=== PATIENT | male | born 1940 | race Two or more races ===

== ENCOUNTER 2024-07-02 19:03 | Emergency (ER) | payer OTHER, SELFPAY ==
[2024-07-02 19:22] VITALS: BP 147/74; PULSE 75; RESP 18; TEMP 36.9; O2SAT 98; BMI 34.5
--- NOTE | 2024-07-02 19:33 | XR_ITS ---
Examination: Ultrasound soft tissue right base Technique: Multiple high-resolution grayscale sonographic images soft tissue right base Exam date and time: July 02, 20242032 hrs. Indications: Right cheek swelling and pain today Findings: Small cystic areas at the area concern 10 x 8 x 8 mm, 5 x 3 x 4 mm Impression: Small cystic areas in the soft tissue right cheek at the area of concern, differential would include early small abscesses, clinical correlation advised Consider CT soft tissue neck post intravenous contrast follow-up
--- NOTE | 2024-07-02 19:34 | PD.EDRME ---
Rapid Medical Screening Exam RME Arrival date/time: 07/02/24 19:03 84 year old male present to Ed for c/o of jaw/neck swelling today I have greeted and performed a focused initial assessment of this patient. A comprehensive ED assessment and evaluation of the patient, analysis of all test results, and completion of the medical decision making process will be conducted by additional ED providers. Chief Complaint: General Adult/Misc Complain Time Seen by Provider: 07/02/24 19:10 Vital signs: Vital Signs Temperature 98.5 F 07/02/24 19:22 Pulse Rate 75 07/02/24 19:22 Respiratory Rate 18 07/02/24 19:22 Blood Pressure 147/74 H 07/02/24 19:22 Pulse Oximetry (%) 98 07/02/24 19:22 Oxygen Delivery Method Room Air 07/02/24 19:22
--- NOTE | 2024-07-02 23:02 | XR_ITS ---
Examination: CT soft tissue neck, with intravenous contrast. 2-D coronal reconstructions. 2-D sagittal reconstructions. Date and time of exam :July 03, 2024 at 1250 hrs. Indications: Right cheek swelling and pain today. CTDI: vol (mGy):10.8 DLP: (mGycm):297 Technique: 1.25 mm axial sections of the neck of the obtained. Coronal and sagittal reconstructions have been obtained. Intravenous contrast administered 50 cc Isovue-370 Low dose protocols, automated exposure control, adjustment MA KV according to patient size Findings: Symmetrical nasopharynx oropharynx No pathologic carotid triangle or submental lymphadenopathy The larynx appears normal Symmetrical thyroid lobes Normal epiglottis Bilateral maxillary incisor dental caries Left incisor premolar mandibular dental caries. Impression: Dental caries maxilla and mandible as above No soft tissue neck abscess
--- NOTE | 2024-07-02 23:10 | EDNOTE_ITS ---
ED General RME/HPI General Chief complaint: General Adult/Misc Complain Stated complaint: RIGHT CHEEK SWELLING Time Seen by Provider: 07/02/24 19:10 Arrival date/time: 07/02/24 19:03 RME / HPI RME / HPI narrative: 07/02/24 19:03 84 year old male present to Ed for c/o of jaw/neck swelling today I have greeted and performed a focused initial assessment of this patient. A comprehensive ED assessment and evaluation of the patient, analysis of all test results, and completion of the medical decision making process will be conducted by additional ED providers. ----- Dr. Costa?s Main ED Evaluation: 84yo male presents to the ED for a chief complaint of right cheek and jaw pain x 1 day. Patient states his right cheek states it feels harder since yesterday and his pain has persisted, so he came in for evaluation. He denies any testicular pain, testicular swelling, fever, chills or any other associated symptoms. No known allergies. Related Data Home Medications ?Medication ?Instructions ?Recorded ?Confirmed Losartan Potassium * (COZAAR *) 100 mg PO QDAY #0 tabs 01/14/17 03/11/23 indomethacin 25 mg capsule 25 mg PO QID #0 caps 01/14/17 03/17/18 pravastatin 20 mg tablet 20 mg PO HS #0 tabs 01/14/17 03/17/18 (Pravachol) tamsulosin 0.4 mg capsule (Flomax) 0.4 mg PO QDAY ##0 04/25/17 03/17/18 allopurinol 300 mg tablet 300 mg PO QDAY 03/11/23 03/11/23 amlodipine 5 mg tablet 5 mg PO QDAY 03/11/23 03/11/23 clopidogrel 75 mg tablet (Plavix) 75 mg PO QDAY 03/11/23 03/11/23 donepezil 5 mg tablet 5 mg PO QDAY 03/11/23 03/11/23 doxazosin 4 mg tablet 4 mg PO QDAY 03/11/23 03/11/23 dutasteride 0.5 mg capsule 0.5 mg PO QDAY 03/11/23 03/11/23 memantine 5 mg tablet 5 mg PO BID 03/11/23 03/11/23 rosuvastatin 20 mg tablet 20 mg PO QDAY 03/11/23 03/11/23 Allergies Allergy/AdvReac Type Severity Reaction Status Date / Time No Known Allergies Allergy Unverified 03/17/18 09:58 Review of Systems Review of Systems Systems Reviewed: All systems reviewed, normal except as documented Narrative Review of Systems: Gen: No fever, no chills, no weight loss EYES: No discharge, no visual changes, no pain HEENT: No ear pain, no congestion, no sore throat, + right cheek/jaw pain PULM: No shortness of breath, no cough, no congestion CV: No chest pain, no dyspnea on exertion, no palpitations GI: No nausea, no vomiting, no diarrhea, no pain, no constipation : No frequency, no urgency, no dysuria Musc/skel: No joint pain, no back pain Skin: No rash Psyc: No hallucinations, no depression Heme/Lymph: No easy bleeding or bruising tendencies Neuro: No weakness, no headache Past Medical History Past Medical History NEUROLOGIC: Positive Neurological Disorders and Transient Ischemic Attacks (TIA); Negative Seizures CARDIAC: Positive Cardiac Disorders, Hypercholesterolemia and Hypertension; Negative Congestive Heart Failure RESPIRATORY: Negative Chronic Obstructive Pulmonary Disease (COPD) GASTROINTESTINAL: Negative Gastrointestinal Disorders GENITOURINARY: Positive Genitourinary Disorders and Benign Prostatic Hyperplasia; Negative Renal Disease MUSCULOSKELETAL: Positive Musculoskeletal Disorders and Gout ENT: Positive Cataracts (OS) ENDOCRINE: Negative Endocrine Disorders, Diabetes Mellitus Type 1 or Diabetes Mellitus Type 2 HEMATOLOGIC: Negative Blood Disorders OTHER HISTORY: Negative Autoimmune Disease, Falls, Blood Transfusions, Blood Transfusion Reaction or Anesthesia Reactions Social History SMOKING STATUS: Never smoker SECOND HAND EXPOSURE: No ED Exam Narrative Physical exam: GENERAL APPEARANCE: alert and oriented x 4, well-developed, well-nourished, no acute distress HEENT: Normocephalic, atraumatic; pupils equal, round, reactive to light; EOMI; mucous membranes pink, moist; oropharynx clear; enlarged, firm, and tender right carotid gland; no perulent drainage on palpation of the carotid gland NECK: Supple LUNGS: CTABL; no wheezes, no rales, no rhonchi HEART: Regular rate, regular rhythm; normal S1, S2; no murmurs ABDOMEN: non distended; normal BS; soft, no tenderness, no guarding, no rebound; no masses, no organomegaly, no hernia BACK: no CVA tenderness EXTREMITIES: atraumatic; no edema NEUROLOGIC: awake; alert and oriented x4; cranial nerves II-XII grossly intact; no focal sensory or motor deficits PSYCHIATRIC: appropriate mood and affect SKIN: warm, dry, normal color; no rashes Course Course Course Narrative: 0255: Requested the personnel monitor to call teleradiology to comment on the right carotid gland. Awaiting re-read of the CT scan at this time. 0335: Discussed results with the patient and family at bedside. Decision to discharge the patient. The patient and all family were given an opportunity to ask questions and understood their discharge instructions. Discharge instructions specifically included follow up provider and time frame, current and/or new medications and possible side effects, indications for sooner follow up or return to the emergency department, and the expected course of current diagnosis. Patient and family verbalized understanding. Quality Measures none Orders Category Date Time Status CT Screening NOW Care 07/02/24 23:[address] soft tissue neck w con Stat Exams 07/02/24 23:02 Taken US soft tissue head neck Stat Exams 07/02/24 19:33 Completed CBC Stat Lab 07/02/24 23:30 Completed CMP [Comprehensive Metabolic Panel] Stat Lab 07/02/24 23:30 Completed Lactic Acid [Lactate (Lactic Acid)] Stat Lab 07/02/24 23:30 Completed HYDROcodone*/APAP 5/325 [[place] 5/325] Med 07/02/24 23:03 Discontinued 1 tab PO X1 ONE Vital Signs Vital signs: Vital Signs Temperature 98.5 F 07/02/24 19:22 Pulse Rate 75 07/02/24 19:22 Respiratory Rate 18 07/02/24 19:22 Blood Pressure 147/74 H 07/02/24 19:22 Pulse Oximetry (%) 98 07/02/24 19:22 Oxygen Delivery Method Room Air 07/02/24 19:22 Pulse ox is 98% on room air, which is normal according to my interpretation. [facility] [place] Patient data External records reviewed:: [facility] previous records (Per chart review, patient was admitted here on 03/09/23 for acute dehydration.) Clinical information provided by:: patient Social determinants that could affect healthcare access:: none Patient has the following chronic illnesses:: TIA, HTN, HLD How is presenting disease/condition affected by chronic disease/condition?: u neffected by Evaluation data The following diagnostics were reviewed and interpreted by me:: lab results and radiology exam(s) Lab and/or radiology exams considered but not ordered:: none Interpretation Summary: CBC is normal, CMP is normal, Lactate is normal, according to my interpretation. ----- [facility] Report Signed Patient: ROSE MARY SALMERON. Record#: [id number] Birthdate: 1940 Age/Sex: 84 / M Location: [facility] Attending Dr: Ordering Physician: Vladimir Macedo PA-C Date of Service: 07/02/24 Procedure(s): US soft tissue head neck Accession Number(s): [id number] cc: Ja Figueroa MD; Dionte Vasquez MD; Vladimir Macedo PA-C~ Examination: Ultrasound soft tissue right base Technique: Multiple high-resolution grayscale sonographic images soft tissue right base Exam date and time: July 02, 2024 2033 hrs. Indications: Right cheek swelling and pain today Findings: Small cystic areas at the area concern 10 x 8 x 8 mm, 5 x 3 x 4 mm Impression: Small cystic areas in the soft tissue right cheek at the area of concern, differential would include early small abscesses, clinical correlation advised Consider CT soft tissue neck post intravenous contrast follow-up Dictated By: Dionte Vasquez MD Signed By: <Electronically signed by Dionte Vasquez MD in OV> 07/02/24 2200 ----- [facility] Preliminary Report Draft Patient: ROSE MARY SALMERON. Record#: [id number] Birthdate: 1940 Age/Sex: 84 / M Location: [facility] Attending Dr: Ordering Physician: Date of Service: Procedure(s): Accession Number(s): cc: ~ ORIGINAL REPORT CT scan of the neck with intravenous contrast (axial sections with sagittal and coronal reformats) July 03, 2024 0050 hours Clinical History: Right jaw swelling Comparison: No prior study is available for comparison. Findings: The nasopharynx, oropharynx, hypopharynx, supraglottic and infraglottic larynx, vocal cords and upper trachea are unremarkable. The epiglottis and aryepiglottic folds appear unremarkable. The vessels of the neck are well opacified. No filling defect is seen. No enhancing lesion or fluid collection is identified. The bones are osteopenic. Apical lucencies in the right upper and left lower incisors. The superficial softtissues of the neck are unremarkable. Impression: Apical lucencies in the right upper and left lower incisors, suggestive of periapical cysts or granulomas. Recommend clinical correlation. No enhancing lesion or fluid collection. Report Electronically Signed By: Pedro Reich 07/03/2024 2:35:40 AM [EST] ADDENDUM REPORT On further review, there is a 1 cm right parotid gland nodule. Suggest follow up clinically or with ultrasound. No inflammation is seen. Report Electronically Signed By: Pedro Reich 07/03/2024 3:36:50 AM [EST Medications Medications considered but not ordered:: none Medication administrations:: Medication Administration History Discontinued Medications Hydrocodone Bitart/Acetaminophen (Hydrocodone/Apap 5/325 Tablet) 1 tab PO X1 ONE Stop: 07/02/24 23:04 Last Admin: 07/02/24 23:20 Dose: 1 tab Documented By: AMY see above Consultations Consultation(s) initiated? (list below): No Diagnosis Differential Diagnosis ED Complaint MDM: parotitis, malignance, gland obstruction Most likely diagnosis given after review of the tests above:: see below Admission Indicated Admission indicated?: not indicated Explain why admission is indicated or not indicated:: Admission criteria not met. Admission Request Was there a request for admission?: No Disposition Plan Disposition Plan: Discharge Discharge Attestation Discharge Attestation: The patient and all family members were given an opportunity to ask questions and understood the discharge instructions. Discharge instructions specifically effects, indications for sooner follow up or return to the emergency department, and the expected course of current diagnosis. Patient condition: Stable Medical Decision Making MDM Narrative MDM Narrative: Scribe Attestation: 07/02/24 - Nat Cunningham am scribing for and in the presence of Dr. Costa. Differential Diagnosis Differential Diagnosis: parotitis, malignance, gland obstruction Lab Data 07/02/24 23:30 07/02/24 23:30 Labs: Lab Results 07/02/24 Range/Units 23:30 WBC 10.4 (3.8-10.6) Thou/mm3 RBC 4.20 L (4.50-5.90) Miln/mm3 Hgb 12.6 L (13.5-16.0) g/dL Hct 37.8 L (41.0-53.0) % MCV 90 (80-100) fL MCH 30.0 (25.0-35.0) pg MCHC 33.3 (31.0-37.0) g/dl RDW Std Deviation 44.8 H (35.1-43.9) fL Plt Count 252 (140-440) Thou/mm3 Neut % (Auto) 68 (37-80) % Lymph % (Auto) 24 (10-50) % O'Brien % (Auto) 7 (0-12) % Eos % (Auto) 1 (0-10) % Baso % (Auto) 0 (0-2.5) % Neut # (Auto) 7.1 (1.8-7.7) Thou/mm3 Lymph # (Auto) 2.5 (1.0-4.8) Thou/mm3 O'Brien # (Auto) 0.7 (0.0-0.8) Thou/mm3 Eos # (Auto) 0.1 (0.0-0.5) Thou/mm3 Baso # (Auto) 0.0 (0.0-0.2) Thou/mm3 Immature Gran # (Auto) 0.10 H (0.00-0.00) Thou/mm3 Absolute Nucleated RBC 0.00 (0.00-0.00) Thou/mm3 Immature Gran % 1 H (0-0) % Nucleated RBC % 0 (0) /100 WBC Sodium 142 (136-145) mMol/L Potassium 3.5 (3.4-5.1) mMol/L Chloride 112 H (98-107) mMol/L Carbon Dioxide 22.4 (20.0-31.0) mMol/L Anion Gap 8 (7-16) BUN 19 (9-23) mg/dL Creatinine 1.0 (0.6-1.3) mg/dL Estim Creat Clear Calc 52.2 L (>60) mL/min eGFR > 60 (60 - ) See Note BUN/Creatinine Ratio 19 (12-20) Ratio Glucose 99 (74-106) mg/dL Calculated Osmolality 285 (275-295) Lactic Acid 1.0 (0.4-2.0) mMol/L Calcium 9.2 (8.3-10.6) mg/dL Corrected Calcium 9.2 (8.5-10.1) mg/dL Total Bilirubin 0.9 (0.3-1.2) mg/dL AST 16 (0-34) U/L ALT 13 (10-49) U/L Alkaline Phosphatase 90 (46-116) U/L Total Protein 6.5 (5.7-8.2) gm/dL Albumin 4.2 (3.4-4.8) gm/dL Globulin 2.3 (2.3-3.5) gm/dL Albumin/Globulin Ratio 1.8 (1.2-2.2) Discharge Plan Prescriptions/Referrals Prescriptions/Med Rec: No Action indomethacin 25 MG capsule 25 mg PO QID Qty: 0 pravastatin [Pravachol] 20 MG tablet 20 mg PO HS Qty: 0 Losartan Potassium * (COZAAR *) 100 MG tablet 100 mg PO QDAY Qty: 0 tamsulosin [Flomax] 0.4 MG capsule,extended release 24hr 0.4 mg PO QDAY Qty: 0 rosuvastatin 20 mg Tablet 20 mg PO QDAY donepezil 5 mg Tablet 5 mg PO QDAY clopidogrel [Plavix] 75 mg Tablet 75 mg PO QDAY amlodipine 5 mg Tablet 5 mg PO QDAY doxazosin 4 mg Tablet 4 mg PO QDAY allopurinol 300 mg Tablet 300 mg PO QDAY dutasteride 0.5 mg Capsule 0.5 mg PO QDAY memantine 5 mg Tablet 5 mg PO BID Referrals: Ja Figueroa MD [Primary Care Provider] - In 1 week Problem List Clinical Impression: Parotid sialadenitis Patient/Caregiver Discharge Instructions Education Materials: ED Salivary Gland Swelling ... Print Language: Telugu
[2024-07-02] MEDS: HYDROcodone/APAP 5/325 TABLET 1 TAB PO (23:20)
[2024-07-02 23:26] VITALS: BP 200/96; PULSE 61; RESP 18; TEMP 36.9; O2SAT 100
[2024-07-02 23:49] LABS: Basophils % (Auto) 0 % (0-2.5); Eosinophils # (Auto) 0.1 Thou/mm3 (0.0-0.5); Eosinophils % (Auto) 1 % (0-10); Hematocrit 37.8 % (41.0-53.0); Hemoglobin 12.6 g/dL (13.5-16.0); Immature Granulocytes % (Auto) 1 % (0-0); Lymphocytes # (Auto) 2.5 Thou/mm3 (1.0-4.8); Lymphocytes % (Auto) 24 % (10-50); Mean Corpuscular HGB Conc 33.3 g/dl (31.0-37.0); Mean Corpuscular Volume 90 fL (80-100); Monocytes # (Auto) 0.7 Thou/mm3 (0.0-0.8); Monocytes % (Auto) 7 % (0-12); Neutrophils # (Auto) 7.1 Thou/mm3 (1.8-7.7); Neutrophils % (Auto) 68 % (37-80); Nucleated Red Blood Cell % 0 /100 WBC (0); Platelet Count 252 Thou/mm3 (140-440); RDW Standard Deviation 44.8 fL (35.1-43.9); White Blood Count 10.4 Thou/mm3 (3.8-10.6)
[2024-07-03 00:09] LABS: Alanine Aminotransferase 13 U/L (10-49); Albumin, Serum 4.2 gm/dL (3.4-4.8); Albumin/Globulin Ratio 1.8 (1.2-2.2); Alkaline Phosphatase 90 U/L (46-116); Anion Gap 8 (7-16); Aspartate Amino Transferase 16 U/L (0-34); BUN/Creatinine Ratio 19 Ratio (12-20); Bilirubin,Total 0.9 mg/dL (0.3-1.2); Blood Urea Nitrogen 19 mg/dL (9-23); Calcium 9.2 mg/dL (8.3-10.6); Calcium (Corrected) 9.2 mg/dL (8.5-10.1); Carbon Dioxide 22.4 mMol/L (20.0-31.0); Chloride 112 mMol/L (98-107); Estimated Creatinine Clearance 52.2 mL/min (>60); Globulin 2.3 gm/dL (2.3-3.5); Glucose 99 mg/dL (74-106); Osmolality,Calculated 285 (275-295); Potassium 3.5 mMol/L (3.4-5.1); Sodium 142 mMol/L (136-145); Total Protein 6.5 gm/dL (5.7-8.2); eGFR > 60 See Note
--- NOTE | 2024-07-03 02:36 | PRELIM_ITS ---
ORIGINAL REPORTCT scan of the neck with intravenous contrast (axial sections with sagittal and boland l reformats) July 03, 2024 0050 hours Clinical History: Right jaw swelling Comparison: No prior s tudy is available for comparison. Findings:The nasopharynx, oropharynx, hypopharynx, supraglottic and infraglottic larynx, vocal cords and upper trachea are unremarkable. The epiglottis and aryepiglotti c folds appear unremarkable.The vessels of the neck are well opacified. No filling defect is seen. No enhancing lesion or fluid collection is identified.The bones are osteopenic. Apical lucencies in the right upper and left lower incisors. The superficial softtissues of the neck are unremarkable. Impre ssion:Apical lucencies in the right upper and left lower incisors, suggestive of periapical cysts or granulomas. Recommend clinical correlation. No enhancing lesion or fluid collection. Report Collinsi ritu Signed By: Pedro Reich 07/03/2024 2:35:40 AM [EST]ADDENDUM REPORTOn further review, there is a 1 cm right parotid gland nodule. Suggest follow up clinically or with ultrasound. No inflammation is seen. Report Electronically Signed By: Pedro Reich 07/03/2024 3:36:50 AM [EST]
[2024-07-03] MEDS: HYDROcodone/APAP 5/325 TABLET 1 TAB PO (03:59)
[2024-07-03 04:04] VITALS: BP 171/92; PULSE 60; RESP 18; TEMP 36.7; O2SAT 99
[2024-07-03 04:05] VITALS: BP 171/92; PULSE 57; RESP 18; O2SAT 96
== END 2024-07-03 04:06 | disposition home or self-care (01) ==
PROVIDERS: Emergency Provider Emergency Medicine; PCP Family Medicine
DX: K11.20 Sialoadenitis, unspecified (principal)
CPT/HCPCS: 36415; 70491; 76536; 80053; 83605; 85025; 99285; A4649; Q9967; A9270

== ENCOUNTER → 2024-08-18 | Outpatient (CLI) | payer OTHER, SELFPAY ==
[2024-08-18 17:09] LABS: Blood Urea Nitrogen 21 mg/dL (9-23); Creatinine (Component) 1.2 mg/dL (0.6-1.3); eGFR 60 See Note
== END | disposition home or self-care (01) ==
LOC: COPL 15:20
PROVIDERS: PCP Family Medicine; Referring Provider Nurse Practitioner Family; Visit Provider Nurse Practitioner Family
DX: I70.213 Atherosclerosis of native arteries of extremities with intermittent claudication, bilateral legs (principal)
CPT/HCPCS: 36415; 82565; 84520

== ENCOUNTER → 2024-08-19 | Outpatient (CLI) | payer OTHER, SELFPAY ==
--- NOTE | 2024-08-19 11:30 | XR_ITS ---
Examination: CTA abdominal aorta iliofemoral runoff. 2-D sagittal coronal reconstructions. 3-D reconstructions, vascular Exam date and time: August 19, 2024 1128 hours INDICATIONS: Diagnosis atherosclerosis of [place] arteries in the extremities, bilateral leg numbness swelling in the feet 2 years Technique: Multiple CTA images of the abdominal aorta iliofemoral runoff arterial vessels, 2.0 mm slice thickness, post intravenous administration 130 cc Isovue-370 2-D sagittal coronal reconstructions. 3-D reconstructions, vascular 3-D postprocessing, including vascular maximum intensity projection images, 3-D volume rendering Low dose protocols were performed. One or more of the following dose reduction techniques were used; automated exposure control, adjustment of the mA and/or KV according to patient size, use of iterative reconstruction technique. Findings: No focal liver or splenic lesions No gallstones No pancreatic or adrenal mass Bilateral benign renal cyst No hydronephrosis Normal appendix No bowel obstruction Colonic diverticulosis, no diverticulitis Contracted urinary bladder Abdominal aortic calcification no aneurysmal dilatation 40% stenosis origin celiac axis No significant stenoses common iliac and external iliac or common femoral arteries No critical stenoses superficial femoral artery or popliteal artery on the right Occlusion proximal right anterior tibial artery Multiple irregularities in the main continuation trunk Short segment occlusion proximal to mid posterior right tibial artery with multiple irregularities distally No significant stenoses left superficial artery or left popliteal artery Occlusion proximal left anterior tibial artery Multiple occlusions within distal main continuation trunk Left posterior tibial artery demonstrates areas of irregularity and 90% short segment stenosis distally image 600 IMPRESSION: 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
== END | disposition home or self-care (01) ==
LOC: CCTX 10:34
PROVIDERS: Referring Provider Nurse Practitioner Family; Visit Provider Nurse Practitioner Family
DX: I70.213 Atherosclerosis of native arteries of extremities with intermittent claudication, bilateral legs (principal)
CPT/HCPCS: 75635; A4649; Q9967

== ENCOUNTER → 2024-09-08 | Outpatient (CLI) | payer OTHER, SELFPAY ==
--- NOTE | 2024-09-08 10:20 | EKG_ITS ---
[facility] (Formerly [facility]) Test Date: 2024-09-08 Pat Name: ROSE MARY SALMERON Department: Room: - Gender: Male Cat Driver: DEENA : 1940 Requested By: Kary Reyez Order Number: [id number] Reading MD: Kary Reyez Measurements Intervals [place] Rate: 65 P: 48 SC: 219 QRS: -61 QRSD: 150 T: -11 QT: 427 QTc: 446 Interpretive Statements SINUS RHYTHM WITH FIRST DEGREE AV BLOCK RIGHT BUNDLE BRANCH BLOCK LEFT ANTERIOR FASCICULAR BLOCK Compared to ECG 03/09/2023 10:42:56 First degree AV block now present /store/S0/[id number].pdf
[2024-09-08 11:21] LABS: Basophils % (Auto) 0 % (0-2.5); Eosinophils % (Auto) 0 % (0-10); Hemoglobin 12.4 g/dL (13.5-16.0); Immature Granulocytes % (Auto) 1 % (0-0); Immature Granulocytes Auto 0.06 Thou/mm3 (0.00-0.00); Lymphocytes # (Auto) 2.3 Thou/mm3 (1.0-4.8); Lymphocytes % (Auto) 26 % (10-50); Mean Corpuscular HGB Conc 31.8 g/dl (31.0-37.0); Mean Corpuscular Hemoglobin 27.9 pg (25.0-35.0); Mean Corpuscular Volume 88 fL (80-100); Monocytes # (Auto) 0.7 Thou/mm3 (0.0-0.8); Monocytes % (Auto) 8 % (0-12); Neutrophils # (Auto) 5.6 Thou/mm3 (1.8-7.7); Neutrophils % (Auto) 65 % (37-80); Nucleated Red Blood Cell % 0 /100 WBC (0); Platelet Count 314 Thou/mm3 (140-440); RDW Standard Deviation 43.6 fL (35.1-43.9); Red Blood Count 4.45 Miln/mm3 (4.50-5.90); White Blood Count 8.7 Thou/mm3 (3.8-10.6)
[2024-09-08 11:30] LABS: Partial Thromboplastin Time 26.8 Seconds (22.0-36.0); Prothrombin Time 10.8 Seconds (9.0-12.2)
[2024-09-08 11:55] LABS: Albumin, Serum 3.9 gm/dL (3.4-4.8); Albumin/Globulin Ratio 1.7 (1.2-2.2); Alkaline Phosphatase 195 U/L (46-116); Anion Gap 10 (7-16); Aspartate Amino Transferase 11 U/L (0-34); BUN/Creatinine Ratio 23 Ratio (12-20); Bilirubin,Total 1.1 mg/dL (0.3-1.2); Blood Urea Nitrogen 25 mg/dL (9-23); Calcium 9.5 mg/dL (8.3-10.6); Calcium (Corrected) 9.6 mg/dL (8.5-10.1); Carbon Dioxide 26.1 mMol/L (20.0-31.0); Chloride 109 mMol/L (98-107); Creatinine (Component) 1.1 mg/dL (0.6-1.3); Globulin 2.3 gm/dL (2.3-3.5); Glucose 91 mg/dL (74-106); Osmolality,Calculated 293 (275-295); Sodium 145 mMol/L (136-145); Total Protein 6.2 gm/dL (5.7-8.2); eGFR > 60 See Note
[2024-09-08 12:01] LABS: Alanine Aminotransferase 11 U/L (10-49)
== END | disposition home or self-care (01) ==
PROVIDERS: PCP Family Medicine; Referring Provider Student in an Organized Health Care Education/Training Program; Visit Provider Student in an Organized Health Care Education/Training Program
DX: Z01.818 Encounter for other preprocedural examination (principal); I70.213 Atherosclerosis of native arteries of extremities with intermittent claudication, bilateral legs; Z79.01 Long term (current) use of anticoagulants
CPT/HCPCS: 36415; 80053; 85025; 85610; 85730; 93005

== ENCOUNTER → 2024-09-13 | Outpatient (CLI) | payer OTHER, SELFPAY ==
[2024-09-13 18:11] LABS: Glucose Estimated Average 117 mg/dL (80-131); Hemoglobin A1C 5.7 % Hgb (4.8-6.0)
[2024-09-13 18:23] LABS: Free T4 (Free Thyroxine) 1.29 ng/dL (0.89-1.76); Thyroid Stimulating Hormone 0.94 uIU/mL (0.55-4.78)
[2024-09-13 18:25] LABS: Vitamin B12 203 pg/mL (211-911); Vitamin D 25 Hydroxy Total 27.2 ng/mL (7.3-40.2)
== END | disposition home or self-care (01) ==
LOC: COPL 16:05
PROVIDERS: PCP Family Medicine; Referring Provider Psychiatry & Neurology Neurology; Visit Provider Psychiatry & Neurology Neurology
DX: R20.2 Paresthesia of skin (principal)
CPT/HCPCS: 36415; 82306; 82607; 83036; 84439; 84443

== ENCOUNTER → 2024-10-06 | Outpatient (CLI) | payer OTHER, SELFPAY ==
[2024-10-06 10:52] LABS: Glucose Estimated Average 108 mg/dL (80-131); Hemoglobin A1C 5.4 % Hgb (4.8-6.0)
[2024-10-06 11:00] LABS: Cardiac Risk Estimate 4.4 RATIO (4.0-6.7); Cholesterol 191 mg/dL (132-200); Free T4 (Free Thyroxine) 1.43 ng/dL (0.89-1.76); HDL Cholesterol 43 mg/dL (40-60); LDL Cholesterol,Calculated 117 mg/dL (0-130); Thyroid Stimulating Hormone 0.62 uIU/mL (0.55-4.78); Triglycerides 154 mg/dL (30-150)
[2024-10-06 11:07] LABS: Vitamin B12 217 pg/mL (211-911); Vitamin D 25 Hydroxy Total 33.4 ng/mL (7.3-40.2)
[2024-10-10 22:05] LABS: Albumin 3.5 g/dL (3.8-4.8); Alpha-1-Globulin 0.3 g/dL (0.2-0.3); Alpha-2-Globulin 0.6 g/dL (0.5-0.9); Beta-1-Globulin 0.4 g/dL (0.4-0.6); Beta-2-globulin 0.4 g/dL (0.2-0.5); Gamma Globulin 0.6 g/dL (0.8-1.7)
[2024-10-11 07:04] LABS: Protein, total, serum 5.8 g/dL (6.1-8.1)
== END | disposition home or self-care (01) ==
LOC: COPL 09:12
PROVIDERS: PCP Family Medicine; Referring Provider Psychiatry & Neurology Neurology; Visit Provider Psychiatry & Neurology Neurology
DX: G62.9 Polyneuropathy, unspecified (principal); R20.2 Paresthesia of skin
CPT/HCPCS: 36415; 80061; 82306; 82607; 83036; 84155; 84165; 84439; 84443; 86334

== ENCOUNTER → 2025-01-10 | Outpatient (CLI) | payer OTHER, SELFPAY ==
--- NOTE | 2025-01-10 13:40 | XR_ITS ---
Examination: Bone densitometry Date and time of exam:2024 1335 hours INDICATIONS: 84-year-old male with diagnosis age related osteoporosis Technique: Lumbar spine and hip total bone mineralization values of an calculated. Peak reference and age match control results have been displayed. Findings: Lumbar spine total bone mineralization is0.844 gm/cm2. This is 2.2 standard deviations below peak reference. Hip total bone mineralization is 0.752 gm/cm2 This is 2.3 standard deviations below peak reference. This is 1.0 standard deviations below age-matched controls Impression: There is osteopenia based on lumbar spine measurements. There is osteoporosis based on hip measurements
== END | disposition home or self-care (01) ==
PROVIDERS: PCP Family Medicine; Referring Provider Family Medicine; Visit Provider Family Medicine
DX: M85.88 Other specified disorders of bone density and structure, other site (principal); M81.0 Age-related osteoporosis without current pathological fracture
CPT/HCPCS: 77080

== ENCOUNTER → 2025-01-10 | Outpatient (CLI) | payer OTHER, SELFPAY ==
[2025-01-14 06:59] LABS: Fecal Globin Result NOT DETECTED (NOT DETECTED)
== END | disposition home or self-care (01) ==
LOC: SLDO 13:46
PROVIDERS: PCP Family Medicine; Referring Provider Family Medicine; Visit Provider Family Medicine
DX: Z12.11 Encounter for screening for malignant neoplasm of colon (principal); Z12.12 Encounter for screening for malignant neoplasm of rectum
CPT/HCPCS: 82274; G0328

== ENCOUNTER → 2025-01-25 | Outpatient (CLI) | payer OTHER, SELFPAY ==
[2025-01-25 15:15] LABS: Coccid Serology, CF CSF (UCD)* See Sep Rpt; Misc Send Out* See Sep Rpt
[2025-01-25 16:26] LABS: Glucose,CSF 57 mg/dL (40-70); Protein Total,CSF 60 mg/dL (8-32)
[2025-01-25 16:35] LABS: CSF White Blood Cell 2 /cmm
[2025-01-25 16:54] LABS: CSF Cell Count Tube # Tube # 4; CSF Color Colorless (Colorless); CSF Polynuclear WBC 0 %; CSF Red Blood Cell 26 /cmm; CSF, Appearance Clear (Clear)
[2025-01-31 06:49] LABS: VDRL, CSF Qual* NON-REACTIVE
[2025-02-02 11:19] LABS: Albumin, CSF 29.5 mg/dL (8.0-42.0); IgG Index, CSF 0.78 (<0.70); IgG, CSF 4.7 mg/dL (0.8-7.7); IgG, Serum 793 mg/dL (600-1540)
[2025-02-03 06:24] LABS: Albumin, Serum 3.9 g/dL (3.6-5.1); Myelin Basic Protein, CSF* <2.0 mcg/L (< OR = 4.0)
[2025-02-03 06:25] LABS: Angiotensin Convert Enz, CSF* <5 U/L (< OR = 15); Oligoclonal Bands, CSF* PRESENT (ABSENT)
== END | disposition home or self-care (01) ==
LOC: COPL 14:41
PROVIDERS: PCP Family Medicine; Referring Provider Psychiatry & Neurology Neurology; Visit Provider Psychiatry & Neurology Neurology
DX: G37.9 Demyelinating disease of central nervous system, unspecified (principal); G62.9 Polyneuropathy, unspecified
CPT/HCPCS: 36415; 82040; 82042; 82164; 82784; 82945; 83873; 83916; 84157; 86171; 86592; 89051